=== PATIENT | male | born 1950 | race Caucasian/White ===

== ENCOUNTER 2017-07-14 09:50 | Day surgery (SDC) | payer BC ==
[~2017-07-14] VITALS: Ht 180.3 cm; Wt 81.7 kg
[~2017-07-14 09:50] MED LIST: CIPDEXSU BOTHEARS; CODACE30; COMPOUND DRUG; DEXA4 PO; EPIPEN 2-P0.3 MG/0.3; EXCEDRIN PM; HYDACE5; HYDR1TAB94 PO; HYDROCODON-ACE118 ML PO; IBUP800 PO; METO10 PO; NYST237S PO; OLAN10 PO; OXYACE5T; OXYACE5T PO; OXYC5 PO; Sulfamethoxazo1 EAC4 PO; VICODIN ES 7.51 EACH
[2017-11-11] MEDS ORDERED: CIPDEXSU (07:10)
[2017-11-11] MEDS ORDERED: SILD50TA (07:12)
== END 2017-07-14 15:07 | disposition home or self-care (01) ==
LOC: ORSCMMR 09:50
PROVIDERS: Surgery
PROC: 0DH63UZ Insertion of Feeding Device into Stomach, Percutaneous Approach (ICD-10-PCS; principal; 2017-07-14 12:45)
DX: R13.11 Dysphagia, oral phase (principal); Z85.21 Personal history of malignant neoplasm of larynx; B19.20 Unspecified viral hepatitis C without hepatic coma; I10 Essential (primary) hypertension; J69.0 Pneumonitis due to inhalation of food and vomit
CPT/HCPCS: C1769; J0690; J2250; J3010; J7120

== ENCOUNTER 2018-05-28 06:37 | Day surgery (SDC) | payer MEDICARE, BC ==
[~2018-05-28] VITALS: Ht 177.8 cm; Wt 86.9 kg
[~2018-05-28 06:37] MED LIST changes: +CIPDEXSU; +SILD50TA
--- NOTE | 2018-05-28 09:28 | NUR ---
05/28/18 0928 Michelle Christiansen USED FOR SPONGES
--- NOTE | 2018-05-28 10:02 | NUR ---
05/28/18 Mohit Mazariegos RECEIVED REPORT FROM [facility] AND TOOK OVER PATIENT CARE PATIENT IN SDU RECLINER RESTING COMFORTABLY, IS AT CHAIRSIDE, TOLERATING PO FLUIDS WELL, PATIENT VSS. NO COMPLAINTS AT THIS TIME. WILL CONTINUE TO MONITOR
== END 2018-05-28 10:34 | disposition home or self-care (01) ==
LOC: ORSCSDS 06:37
PROVIDERS: Otolaryngology
PROC: 0CBS8ZX Excision of Larynx, Via Natural or Artificial Opening Endoscopic, Diagnostic (ICD-10-PCS; principal; 2018-05-28 08:00)
DX: C32.1 Malignant neoplasm of supraglottis (principal); R49.0 Dysphonia; R13.10 Dysphagia, unspecified; B19.20 Unspecified viral hepatitis C without hepatic coma; I10 Essential (primary) hypertension; Z79.899 Other long term (current) drug therapy; Z87.891 Personal history of nicotine dependence
CPT/HCPCS: 88305; J0330; J1100; J2250; J2310; J2405; J2710; J3010; J7120

== ENCOUNTER 2019-02-25 11:41 | Day surgery (SDC) | payer MEDICARE, BC ==
[~2019-02-25] VITALS: Ht 177.8 cm; Wt 83.0 kg
--- NOTE | 2019-02-25 12:38 | NUR ---
02/25/19 1238 Yari Stack 1 TRY, VEIN MOVED RH 2 TRY WRIST R, MOVED 3 TRY LH BLEW 4 TRY UPPER ARM RH
== END 2019-02-25 13:41 | disposition home or self-care (01) ==
LOC: ORSCSDS 11:41
PROVIDERS: Surgery
PROC: 0DJD8ZZ Inspection of Lower Intestinal Tract, Via Natural or Artificial Opening Endoscopic (ICD-10-PCS; principal; 2019-02-25 13:00)
DX: Z12.11 Encounter for screening for malignant neoplasm of colon (principal); Z86.010 Personal history of colon polyps; I10 Essential (primary) hypertension; Z87.891 Personal history of nicotine dependence
CPT/HCPCS: J2704; J7120

== ENCOUNTER 2020-01-14 11:00 | Day surgery (SDC) | payer MEDICARE, BC | END 2020-01-14 22:36 | disposition home or self-care (01) | LOC: ORSCMMR 11:00 → CT 11:00 → ORSCMMR 11:01 → CT 22:36 | DX: R91.8 Other nonspecific abnormal finding of lung field (principal) ==

== ENCOUNTER → 2023-04-11 | Outpatient (CLI) | payer MEDICARE, BC ==
[2023-04-11 15:37] LABS: BASOPHILS ABSOLUTE AUTO 0.02 K/mm3 (0.00-0.23); BASOPHILS PERCENT AUTO 0 % (0-2); EOSINOPHILS ABSOLUTE AUTO 0.03 K/mm3 (0.00-0.68); EOSINOPHILS PERCENT AUTO 0 % (0-6); Hematocrit 47.3 % (37.0-53.0); Hemoglobin 15.9 g/dL (13.5-17.5); IMMATURE GRAN ABSOLUTE AUTO 0.01 K/mm3 (0.00-0.10); IMMATURE GRAN PERCENT AUTO 0 % (0-1); LYMPHOCYTES ABSOLUTE AUTO 1.72 K/mm3 (0.84-5.20); LYMPHOCYTES PERCENT AUTO 25 % (21-46); MONOCYTES ABSOLUTE AUTO 0.38 K/mm3 (0.16-1.47); MONOCYTES PERCENT AUTO 6 % (4-13); Mean Corpuscular HGB 31.7 pg (26.0-34.0); Mean Corpuscular HGB Conc 33.6 g/dL (31.5-36.5); Mean Corpuscular Volume 94 fL (80-100); Mean Platelet Volume 11.9 fL (9.1-12.4); NEUTROPHILS ABSOLUTE AUTO 4.81 K/mm3 (1.96-9.15); NEUTROPHILS PERCENT AUTO 69 % (41-73); Platelet Count 86 K/mm3 (150-400); RDW Coefficient Variation 13.8 % (11.7-14.2); RDW Standard Deviation 47.3 fL (35.1-46.3); Red Blood Cell Count 5.02 M/mm3 (4.30-5.90); White Blood Cell Count 6.97 K/mm3 (4.00-11.30)
[2023-04-11 18:28] LABS: Alanine Aminotransfer (ALT/SGP 64 U/L (12-78); Albumin, Blood 3.6 g/dL (3.4-5.0); Albumin/Globulin Ratio 0.8 (0.8-1.8); Alk Phos 85 U/L (50-136); Anion Gap 6 mmol/L (6-16); Aspartate Aminotrans (AST/SGOT 59 U/L (12-37); Bilirubin, Total 1.2 mg/dL (0.1-1.0); Blood Urea Nitrogen 12 mg/dL (8-24); Bun/Creatinine Ratio 18.9 (12.0-20.0); CHOL/HDL RATIO 3.3; CO2, Blood 26 mmol/L (21-32); Calcium, Blood 8.9 mg/dL (8.5-10.1); Chloride, Blood 107 mmol/L (98-108); Cholesterol 137 mg/dL (50-200); Creatinine, Blood 0.64 mg/dL (0.60-1.20); Globulin, Blood 4.3 g/dL (2.2-4.0); Glomerular Filtration Rate 102 (60-); Glucose, Blood 121 mg/dL (70-99); HDL Cholesterol 42 mg/dL (>39); LDL/HDL RATIO 1.8; Low Density Lipoprotein Chol 76 mg/dL (0-110); Potassium, Blood 4.5 mmol/L (3.5-5.5); Sodium, Blood 139 mmol/L (136-145); Total Protein, Blood 7.9 g/dL (6.4-8.2); Triglycerides 97 mg/dL (30-160); Very Low Density Lipoprot Chol 19 mg/dL (6-32)
== END | disposition home or self-care (01) ==
LOC: LAB 14:12 → LAB SHORT 14:12
PROVIDERS: Hospitalist
DX: Z11.59 Encounter for screening for other viral diseases (principal); I10 Essential (primary) hypertension
CPT/HCPCS: 80053; 80061; 85025; 86803

== ENCOUNTER → 2023-05-08 | Outpatient (CLI) | payer MEDICARE, BC ==
[2023-05-11 15:52] LABS: HEPATITIS C ANTIBODY CIA INDEX >11.00 IV
[2023-05-12 08:16] LABS: HEPATITIS C AB CIA INTERP High Pos
[2023-05-13 15:14] LABS: HCV QNT BY NAAT (LOG IU/ML) 7.14; HCV QNT BY NAAT INTERP Detected (Not Detected)
== END ==
LOC: LAB SHORT 13:55 → LAB 13:55
PROVIDERS: Hospitalist
DX: R76.8 Other specified abnormal immunological findings in serum (principal)
CPT/HCPCS: 86803; 87522